=== PATIENT | female | born 1960 | race Caucasian/White ===

== ENCOUNTER 2022-06-07 10:34 | Emergency (ER) | payer OTHER, MEDICARE, MEDICAID ==
[~2022-06-07] VITALS: Ht 165.1 cm; Wt 86.4 kg
[~2022-06-07 10:34] MED LIST: NO HOME MEDS
[2022-06-07 11:03] VITALS: BP 122/90
[2022-06-07] MEDS ORDERED: HYDR-3965 PO (16:30)
== END 2022-06-07 17:28 | disposition home or self-care (01) ==
LOC: ER 10:34
DX: M25.571 Pain in right ankle and joints of right foot (principal); M54.2 Cervicalgia; M54.59 Other low back pain; Z88.0 Allergy status to penicillin; Z88.5 Allergy status to narcotic agent; Z79.899 Other long term (current) drug therapy; V98.8XXA Other specified transport accidents, initial encounter; Y93.89 Activity, other specified; Y92.89 Other specified places as the place of occurrence of the external cause; Y99.8 Other external cause status
CPT/HCPCS: 72040; 72100; 73610; 99284

== ENCOUNTER 2025-04-16 10:58 | Emergency (ER) | payer MEDICARE, MEDICAID ==
[~2025-04-16] VITALS: Ht 165.1 cm; Wt 90.0 kg
--- NOTE | 2025-04-16 12:34 | RADIOLOGY REPORT ---
EXAM: DI FOOT, COMPLETE (3VW MIN) HISTORY: FOOT PAIN COMPARISON: None. TECHNIQUE: DI FOOT, COMPLETE (3VW MIN) FINDINGS: BONES: No acute fracture or dislocation in the left foot. SOFT TISSUES: The overlying soft tissues are within normal limits. IMPRESSION: 1. No acute osseous abnormality of the left foot.
--- NOTE | 2025-04-16 14:49 | Physician Documentation ---
History of Present Illness ~ Chief Complaint: Wound Stated Complaint: SPIDER BITE Time Seen by MD: 14:01 Primary Medical Doctor: [facility] Source: patient (3) HPI Patient comes in for evaluation of possible insect bites on her left foot. She reports a couple of days ago she began to have open wounds on her left toes and plantar surface of her foot, which she felt was likely secondary to possibly a spider bite versus another insect envenomation. The areas have been itching and burning, and she has had some surrounding erythema. She denies any associated fever, but she reports that she has not been feeling well in general. She has pain when attempting to walk. Tetanus within 5 years?: No Medication Reconciliation Allergies: Coded Allergies: codeine (Unverified Allergy, Unknown, 04/16/25) Uncoded Allergies: BEES (Allergy, Unknown, 12/05/15) Scheduled Cephalexin*Monohydrate* (Keflex*), 1 CAP PO QID Miscellaneous Medications Home Med List (No Home Medications), (Reported) Past Medical History Past Medical History: No Pertinent History Past Surgical History: no surgical history Smoking Status: Current every day smoker Alcohol Use: None Drug Use: none Lives In: Home Review of Systems All Other Systems at this time: Reviewed and Negative Physical Exam Vital Signs: Temperature: 97.8, Source: Oral, Heart Rate: 77, Respiratory Rate: 18, BP: 132/99, Pulse Oximetry: 99, Weight: 90.000 Oxygen Flow Rate: 0 Physical Exam General: Pt is awake, alert, oriented x4 in no acute distress and well appearing. Head: Normocephalic and atraumatic. Eyes: Conjunctiva normal. ENT: Mucous membranes moist. Neck: Supple. Chest: Clear to auscultation bilaterally, without rales, rhonchi, or wheezes. There is no accessory muscle use or retractions. Cardiac: Regular rate and rhythm without murmurs, gallops or rubs. Palpation of the chest wall is normal. Abd: Soft, nondistended, nontender, with normoactive bowel sounds. No guarding or rebound. Extremities: Within normal limits without cyanosis, clubbing, or edema. Skin: [place], warm and dry with no significant rash appreciated. She does have an open wound on the lateral left great toe, superficial but ulcerated. A small wound in the 1st webspace, and two wounds on the plantar surface of the foot. These have some desquamation in the periwound area, are all superficial. There is some erythema around each one, likely consistent with insect envenomation, but some more diffuse erythema over the dorsum of the foot. Neuro: Cranial nerves II-XII grossly intact. The gait is antalgic Progress Results/Orders Results/Orders Orders - GAMALIEL EWING MD Foot, Complete (3vw Min) (04/16/25 11:50) Ortho Orders (04/16/25 14:45) Dressing Orders (04/16/25 14:45) Completed Orders - GAMALIEL EWING MD Foot, Complete (3vw Min) (04/16/25 11:50) Mupirocin Ointment (Bactroban Ointment) (04/16/25 14:38) Cephalexin Capsule (Keflex Capsule) (04/16/25 14:40) Tetanus/Pertuss/Diph Acell/Pf (Boostrix (04/16/25 14:45) Vital Signs 04/16/25 04/16/25 04/16/25 11:18 14:17 15:05 Temp 97.8 97.8 97.8 Pulse 94 77 73 Resp 18 18 18 B/P (MAP) 135/94 132/99 (110) 118/89 Pulse Ox 98 99 95 O2 Flow Rate 0 Medical Decision Making Additional Comment Patient presenting with what appeared to be consistent with insect bites, especially given the pruritus associated with the pain and the appearance of the ulcerations. There maybe some associated cellulitis on the dorsum of the foot, and this area was demarcated with a skin pen to facilitate comparison. Patient will wash her foot daily and use mupirocin ointment which will be started in the emergency department, was also given oral antibiotics for potential associated cellulitis. She will follow up in the next 2-3 days with her regular physician, but understands to return to the emergency department if she has any signs of worsening including fever or constitutional symptoms, spread of the erythema, or any other concerns. Departure Time of Disposition: 14:49 Disposition: 01 HOME / SELF CARE / HOMELESS Impression: Primary Impression: Wound Additional Impression: Wound cellulitis Condition: Stable Discharge Instructions: Cellulitis, Adult Additional Instructions: Please wash your foot with soap and water daily, dry well, and then use the mupirocin ointment on the open sores before covering with gauze. Place gauze between her 1st and 2nd toes to keep it from getting too wet. In addition to the antibiotic ointment you are given a prescription for oral antibiotics which you should take until finished. Please follow-up with your regular provider in the next 2-3 days for recheck, and you may need referral to Wound Care if your wounds do not rapidly improve. Please return to the emergency department if you feel worse, if you develop fever, if you notice any spread of the redness beyond the line demarcated in the ER today, or if any other concerns. Referrals: NO PRIMARY CARE PROVIDER (PCP) Prescriptions Cephalexin*Monohydrate* (Keflex*) 500 Mg Capsule 1 CAP PO QID, #28 CAP Prov: GAMALIEL EWING MD 04/16/25 Education Educated: Patient Educated regarding: diagnosis, treatment Signature Scribe Signature: Attestation: GAMALIEL EWING MD Apr 16, 2025 14:49
[2025-04-16] MEDS ORDERED: CEPH-585 PO (14:51)
[2025-04-16 15:05] VITALS: BP 118/89; PULSE 73; RESP 18; TEMP 97.8; O2SAT 95
[2025-04-16] MEDS: TETanus/Pertussis (Acell)/Diphther VAC/PF (Tdap-Adult) 0.5ml syringe IMVAC ONE (15:14)
== END 2025-04-16 15:25 | disposition home or self-care (01) ==
LOC: ER 10:58
DX: S91.302A Unspecified open wound, left foot, initial encounter (principal); L03.116 Cellulitis of left lower limb; F17.200 Nicotine dependence, unspecified, uncomplicated; Z88.5 Allergy status to narcotic agent; W57.XXXA Bitten or stung by nonvenomous insect and other nonvenomous arthropods, initial encounter; Y93.89 Activity, other specified; Y92.89 Other specified places as the place of occurrence of the external cause; Y99.8 Other external cause status
CPT/HCPCS: 73630; 90715; 99283; G0008; 90471